=== PATIENT | male | born 1945 | race Hispanic/Latino ===

== ENCOUNTER 2021-05-04 23:38 | Inpatient (IN) | payer MEDICARE ==
[2021-05-05 00:08] LABS: Hemoglobin 13.8 g/dL (14.0-18.0); Mean Corpuscular HGB CONC 33.8 g/dL (32.0-36.0); Mean Corpuscular Volume 97.6 fL (78.0-98.0); RBC Distribution Width 13.2 % (11.5-14.5); Red Blood Cell (RBC) Count 4.17 mill/uL (4.70-6.10); White Blood Cell (WBC) Count 6.9 thou/uL (4.8-10.8)
[2021-05-05 00:12] LABS: INR-International Normal Ratio 1.1; Prothrombin Time 14.7 sec (12.0-14.7)
[2021-05-05 00:16] LABS: ALT (SGPT) 9 U/L (8-55); AST (SGOT) 21 U/L (5-34); Albumin 3.7 g/dL (3.4-4.8); Alcohol Less than 10 mg/dL (Less than 10); Alkaline Phosphatase 59 U/L (40-110); Anion Gap 17 mmol/L (10-20); BUN (Urea Nitrogen) 16 mg/dL (8.4-25.7); Bilirubin, Total 1.4 mg/dL (0.2-1.2); Calc. Creatinine Clearance 0 mL/min (70-130); Calcium 8.6 mg/dL (7.8-10.44); Carbon Dioxide 21 mmol/L (23-31); Chloride 104 mmol/L (98-107); Globulin 2.9 g/dL (2.4-3.5); Glucose 90 mg/dL (83-110); Protein, Total 6.6 g/dL (5.8-8.1); Sodium 138 mmol/L (136-145)
[2021-05-05] MEDS ORDERED: Acetaminophen 500 MG TAB ONE (01:01)
[2021-05-05 01:06] LABS: #Lymphocytes 0.4 thou/uL (1.20-3.40); #Monocytes 0.6 thou/uL (0.11-0.59); #Neutrophils 5.8 thou/uL (1.40-6.50); %Basophils 0.3 % (0.0-1.0); %Eosinophils 0.3 % (0.0-10.0); %Lymphocytes 6.1 % (21.0-51.0); %Monocytes 9.1 % (0.0-10.0); %Neutrophils 84.2 % (42.0-75.0); MDiff Complete? YES; Mean Platelet Volume 7.6 fL (7.4-10.4); Platelet Clumps SLIGHT; Platelet Count 92 thou/uL (130-400)
[2021-05-05 01:09] LABS: CKMB 0.6 ng/mL (0-6.6)
[2021-05-05 01:49] LABS: Bacteria/HPF None Seen HPF (None Seen); Bilirubin Negative (Negative); Blood, Urine 2+ (Negative); Clarity Clear (Clear); Glucose, Urine (Dipstick) Normal (Negative); Ketone, Urine Trace mg/dL (Negative); Leukocyte Negative Leu/uL (Negative); Nitrite 1+ (Negative); Protein, Urine (Dipstick) 100 mg/dL (Neg-Trace); RBC/HPF 0-3 HPF (0-3); Specific Gravity, Urine 1.025 (1.002-1.036); Squamous Epithelial 0-3 HPF (0-3); Urobilinogen Normal mg/dL (Less than 2); pH, Urine 5.5 (5.0-9.0)
[2021-05-05] MEDS ORDERED: Vancomycin 1 GM/200 ML BAG ONE (02:01)
[2021-05-05 03:25] LABS: Troponin I 0.044 ng/mL (< 0.028)
[2021-05-05 04:30] LABS: SARS-CoV-2 NAA Rapid Test DETECTED (NotDetected)
[2021-05-05 07:01] LABS: Troponin I 0.034 ng/mL (< 0.028)
[2021-05-05] MEDS ORDERED: Bisacodyl 5 MG TAB PO PRN (08:16)
[2021-05-05] MEDS ORDERED: Acetaminophen 325 MG TAB PO PRN (08:16)
[2021-05-05] MEDS ORDERED: Acetaminophen 650 MG Suppository PR PRN (08:16)
[2021-05-05] MEDS ORDERED: Senokot S 8.6-50 MG TAB PO PRN (08:16)
[2021-05-05] MEDS ORDERED: Ondansetron ODT 4 MG TAB PO PRN (08:16)
[2021-05-05] MEDS ORDERED: HumaLOG 300 UNITS/3 ML VIAL SC PRN ×2 (08:22)
[2021-05-05] MEDS ORDERED: Dextrose 5% in Water 1,000 ML IV PRN (08:22)
[2021-05-05] MEDS ORDERED: Dextrose 50% Abboject 50 ML SYRINGE SLOW IVP PRN (08:22)
[2021-05-05] MEDS ORDERED: Benzonatate 100 MG CAP PO PRN (08:40)
[2021-05-05] MEDS ORDERED: Guaifenesin DM 100-10/5 ML UDCUP PO PRN (08:40)
[2021-05-05] MEDS ORDERED: Cepastat Lozenges 1 LOZ PO PRN (08:41)
[2021-05-05] MEDS ORDERED: Vancomycin HCl 750 MG in Sodium Chloride 0.9% 250 ML 250 ML IVPB SCH (09:45)
[2021-05-05] MEDS ORDERED: Enoxaparin Sodium 40 MG/0.4 ML SYRINGE ONE (10:47)
[2021-05-05] MEDS ORDERED: Famotidine 20 MG TAB ONE ×2 (10:47→20:40)
[2021-05-05] MEDS: Famotidine 20 MG TAB PO SCH ×2 (10:50→21:15)
[2021-05-05] MEDS: Enoxaparin Sodium 40 MG/0.4 ML SYRINGE SC SCH (10:50)
[2021-05-05] MEDS: Fluticasone Propionate Nasal Spray 16 gm Bottle NASAL SCH (11:18)
[2021-05-05] MEDS: guaiFENesin ER 600 MG TAB PO SCH ×2 (11:18→21:55)
[2021-05-05] MEDS: Carvedilol 6.25 MG TAB PO SCH (18:30)
[2021-05-05] MEDS ORDERED: cefTRIAXone\\ROCEPHIN 1 GM VIAL ONE (20:40)
[2021-05-05] MEDS ORDERED: Cefepime 1 GM in Sodium Chloride 0.9% 100 ML IVPB SCH (21:00)
[2021-05-05] MEDS: cefTRIAXone\\ROCEPHIN 1 GM in Sodium Chloride 0.9% 100 ML IVPB SCH (21:15)
[2021-05-05] MEDS: Atorvastatin Calcium 40 MG TAB PO SCH (21:52)
[2021-05-05] MEDS: hydrALAZINE 10 MG TAB PO SCH (21:55)
[2021-05-05 23:59] VITALS: BMI 28.1
[2021-05-06] MEDS: Atorvastatin Calcium 40 MG TAB PO SCH ×2 (04:03→20:59)
[2021-05-06] MEDS: cefTRIAXone\\ROCEPHIN 1 GM in Sodium Chloride 0.9% 100 ML IVPB SCH ×2 (04:03→20:57)
[2021-05-06] MEDS: hydrALAZINE 10 MG TAB PO SCH ×4 (04:04→21:00)
[2021-05-06] MEDS: guaiFENesin ER 600 MG TAB PO SCH ×3 (04:04→20:59)
[2021-05-06] MEDS: Famotidine 20 MG TAB PO SCH ×2 (04:04→08:10)
[2021-05-06] MEDS ORDERED: VANCOMYCIN 1.75 GM/350 ML BAG 1.75 GM in Premix Bag 1 BAG IVPB SCH (06:00)
[2021-05-06] MEDS: Furosemide 40 MG TAB PO SCH (08:08)
[2021-05-06] MEDS: Carvedilol 6.25 MG TAB PO SCH ×2 (08:08→20:38)
[2021-05-06] MEDS: Enoxaparin Sodium 40 MG/0.4 ML SYRINGE SC SCH (08:08)
[2021-05-06] MEDS: Ascorbic Acid 500 mg Chewable Tablet PO SCH (08:09)
[2021-05-06] MEDS: Cholecalciferol 1,000 UNITS (25 MCG) TAB PO SCH (08:09)
[2021-05-06] MEDS: Losartan 25 MG TAB PO SCH (08:09)
[2021-05-06] MEDS: Zinc Sulfate 220 MG CAP PO SCH (08:10)
[2021-05-06] MEDS: Aspirin 81 mg Enteric Coated Tablet PO SCH (08:10)
[2021-05-06 08:30] LABS: #Lymphocytes 0.8 thou/uL (1.20-3.40); #Monocytes 0.5 thou/uL (0.11-0.59); #Neutrophils 5.8 thou/uL (1.40-6.50); %Lymphocytes 11.5 % (21.0-51.0); %Monocytes 7.5 % (0.0-10.0); Hemoglobin 13.6 g/dL (14.0-18.0); Mean Corpuscular HGB CONC 33.2 g/dL (32.0-36.0); Mean Corpuscular Hemoglobin 32.4 pg (27.0-31.0); Mean Corpuscular Volume 97.5 fL (78.0-98.0); Mean Platelet Volume 8.9 fL (7.4-10.4); Platelet Count 83 thou/uL (130-400); RBC Distribution Width 13.1 % (11.5-14.5); White Blood Cell (WBC) Count 7.1 thou/uL (4.8-10.8)
[2021-05-06 08:35] LABS: Anion Gap 17 mmol/L (10-20); BUN (Urea Nitrogen) 21 mg/dL (8.4-25.7); Calc. Creatinine Clearance 72 mL/min (70-130); Calcium 8.5 mg/dL (7.8-10.44); Carbon Dioxide 20 mmol/L (23-31); Chloride 104 mmol/L (98-107); Glucose 101 mg/dL (83-110); Potassium 3.8 mmol/L (3.5-5.1); Sodium 137 mmol/L (136-145)
[2021-05-06] MEDS: Fluticasone Propionate Nasal Spray 16 gm Bottle NASAL SCH (12:27)
[2021-05-07] MEDS: Aspirin 81 mg Enteric Coated Tablet PO SCH (08:12)
[2021-05-07] MEDS: Cholecalciferol 1,000 UNITS (25 MCG) TAB PO SCH (08:12)
[2021-05-07] MEDS: Enoxaparin Sodium 40 MG/0.4 ML SYRINGE SC SCH (08:12)
[2021-05-07] MEDS: hydrALAZINE 10 MG TAB PO SCH ×3 (08:13→21:09)
[2021-05-07] MEDS: Famotidine 20 MG TAB PO SCH ×2 (08:14→21:09)
[2021-05-07] MEDS: Furosemide 40 MG TAB PO SCH (08:14)
[2021-05-07] MEDS: Ascorbic Acid 500 mg Chewable Tablet PO SCH (08:14)
[2021-05-07] MEDS: Zinc Sulfate 220 MG CAP PO SCH (08:14)
[2021-05-07] MEDS: Carvedilol 6.25 MG TAB PO SCH ×2 (08:14→18:24)
[2021-05-07] MEDS: Losartan 25 MG TAB PO SCH (08:15)
[2021-05-07] MEDS: Fluticasone Propionate Nasal Spray 16 gm Bottle NASAL SCH (08:15)
[2021-05-07] MEDS: guaiFENesin ER 600 MG TAB PO SCH ×2 (08:15→21:09)
[2021-05-07] MEDS ORDERED: Losartan 25 MG TAB PO SCH (09:00)
[2021-05-07 12:02] LABS: #Lymphocytes 0.3 thou/uL (1.20-3.40); #Monocytes 0.6 thou/uL (0.11-0.59); #Neutrophils 4.1 thou/uL (1.40-6.50); %Basophils 0.7 % (0.0-1.0); %Eosinophils 0.2 % (0.0-10.0); %Lymphocytes 6.7 % (21.0-51.0); %Monocytes 11.4 % (0.0-10.0); %Neutrophils 81.1 % (42.0-75.0); Hemoglobin 13.4 g/dL (14.0-18.0); Mean Corpuscular HGB CONC 31.8 g/dL (32.0-36.0); Mean Corpuscular Hemoglobin 30.8 pg (27.0-31.0); Mean Corpuscular Volume 96.9 fL (78.0-98.0); Mean Platelet Volume 8.5 fL (7.4-10.4); Platelet Count 87 thou/uL (130-400); Red Blood Cell (RBC) Count 4.35 mill/uL (4.70-6.10)
[2021-05-07 12:11] LABS: Anion Gap 15 mmol/L (10-20); BUN (Urea Nitrogen) 24 mg/dL (8.4-25.7); Calc. Creatinine Clearance 63 mL/min (70-130); Calcium 8.5 mg/dL (7.8-10.44); Carbon Dioxide 21 mmol/L (23-31); Chloride 102 mmol/L (98-107); Glucose 189 mg/dL (83-110); Potassium 3.4 mmol/L (3.5-5.1); Sodium 135 mmol/L (136-145)
[2021-05-07] MEDS: cefTRIAXone\\ROCEPHIN 1 GM in Sodium Chloride 0.9% 100 ML IVPB SCH (21:08)
[2021-05-07] MEDS: Atorvastatin Calcium 40 MG TAB PO SCH (21:09)
[2021-05-08 05:56] LABS: #Lymphocytes 0.7 thou/uL (1.20-3.40); #Monocytes 0.6 thou/uL (0.11-0.59); #Neutrophils 3.7 thou/uL (1.40-6.50); %Basophils 0.1 % (0.0-1.0); %Eosinophils 0.1 % (0.0-10.0); %Lymphocytes 12.9 % (21.0-51.0); %Monocytes 12.8 % (0.0-10.0); %Neutrophils 74.1 % (42.0-75.0); Hemoglobin 14.1 g/dL (14.0-18.0); Mean Corpuscular HGB CONC 33.2 g/dL (32.0-36.0); Mean Corpuscular Volume 96.4 fL (78.0-98.0); Mean Platelet Volume 8.5 fL (7.4-10.4); Platelet Count 95 thou/uL (130-400); Red Blood Cell (RBC) Count 4.41 mill/uL (4.70-6.10)
[2021-05-08 06:19] LABS: Anion Gap 15 mmol/L (10-20); BUN (Urea Nitrogen) 24 mg/dL (8.4-25.7); Calc. Creatinine Clearance 77 mL/min (70-130); Calcium 8.5 mg/dL (7.8-10.44); Carbon Dioxide 20 mmol/L (23-31); Chloride 103 mmol/L (98-107); Glucose 124 mg/dL (83-110); Potassium 3.3 mmol/L (3.5-5.1); Sodium 135 mmol/L (136-145)
[2021-05-08] MEDS: Furosemide 40 MG TAB PO SCH (06:34)
[2021-05-08] MEDS ORDERED: Potassium Chloride 20 MEQ TAB PO SCH (07:45)
[2021-05-08] MEDS: Ascorbic Acid 500 mg Chewable Tablet PO SCH (10:08)
[2021-05-08] MEDS: Cholecalciferol 1,000 UNITS (25 MCG) TAB PO SCH (10:09)
[2021-05-08] MEDS: hydrALAZINE 10 MG TAB PO SCH ×3 (10:09→20:52)
[2021-05-08] MEDS: Zinc Sulfate 220 MG CAP PO SCH (10:11)
[2021-05-08] MEDS: Famotidine 20 MG TAB PO SCH ×2 (10:11→20:51)
[2021-05-08] MEDS: Losartan 25 MG TAB PO SCH (10:13)
[2021-05-08] MEDS: guaiFENesin ER 600 MG TAB PO SCH ×2 (10:13→20:52)
[2021-05-08] MEDS: Carvedilol 6.25 MG TAB PO SCH ×2 (10:13→15:56)
[2021-05-08] MEDS: Aspirin 81 mg Enteric Coated Tablet PO SCH (10:13)
[2021-05-08] MEDS: Fluticasone Propionate Nasal Spray 16 gm Bottle NASAL SCH (10:18)
[2021-05-08] MEDS: Enoxaparin Sodium 40 MG/0.4 ML SYRINGE SC SCH (10:20)
[2021-05-08] MEDS: cefTRIAXone\\ROCEPHIN 1 GM in Sodium Chloride 0.9% 100 ML IVPB SCH (20:51)
[2021-05-08] MEDS: Atorvastatin Calcium 40 MG TAB PO SCH (20:52)
[2021-05-09 07:02] LABS: #Lymphocytes 0.5 thou/uL (1.20-3.40); #Monocytes 0.6 thou/uL (0.11-0.59); #Neutrophils 3.3 thou/uL (1.40-6.50); %Eosinophils 0.1 % (0.0-10.0); %Lymphocytes 10.8 % (21.0-51.0); %Monocytes 13.1 % (0.0-10.0); Hemoglobin 14.1 g/dL (14.0-18.0); Mean Corpuscular HGB CONC 33.8 g/dL (32.0-36.0); Mean Corpuscular Hemoglobin 32.5 pg (27.0-31.0); Mean Corpuscular Volume 96.1 fL (78.0-98.0); Mean Platelet Volume 8.7 fL (7.4-10.4); Platelet Count 114 thou/uL (130-400); Red Blood Cell (RBC) Count 4.34 mill/uL (4.70-6.10); White Blood Cell (WBC) Count 4.3 thou/uL (4.8-10.8)
[2021-05-09 07:06] LABS: Anion Gap 14 mmol/L (10-20); BUN (Urea Nitrogen) 22 mg/dL (8.4-25.7); Calc. Creatinine Clearance 83 mL/min (70-130); Calcium 8.1 mg/dL (7.8-10.44); Carbon Dioxide 20 mmol/L (23-31); Chloride 104 mmol/L (98-107); Glucose 111 mg/dL (83-110); Potassium 3.7 mmol/L (3.5-5.1); Sodium 134 mmol/L (136-145)
[2021-05-09 08:22] VITALS: BP 158/72; TEMP 98.5
[2021-05-09] MEDS: Cholecalciferol 1,000 UNITS (25 MCG) TAB PO SCH (08:30)
[2021-05-09] MEDS: Aspirin 81 mg Enteric Coated Tablet PO SCH (08:31)
[2021-05-09] MEDS: hydrALAZINE 10 MG TAB PO SCH (08:31)
[2021-05-09] MEDS: Furosemide 40 MG TAB PO SCH (08:32)
[2021-05-09] MEDS: Zinc Sulfate 220 MG CAP PO SCH (08:32)
[2021-05-09] MEDS: Famotidine 20 MG TAB PO SCH (08:32)
[2021-05-09] MEDS: Losartan 25 MG TAB PO SCH (08:32)
[2021-05-09] MEDS: Ascorbic Acid 500 mg Chewable Tablet PO SCH (08:33)
[2021-05-09] MEDS: guaiFENesin ER 600 MG TAB PO SCH (08:33)
[2021-05-09] MEDS: Enoxaparin Sodium 40 MG/0.4 ML SYRINGE SC SCH (08:33)
[2021-05-09] MEDS: Fluticasone Propionate Nasal Spray 16 gm Bottle NASAL SCH (08:34)
[2021-05-09] MEDS: Carvedilol 6.25 MG TAB PO SCH (08:45)
== END 2021-05-09 13:20 | disposition home or self-care (01) | DRG 871 ==
LOC: ERS 23:38 → ERHOLD 05-05 02:33 → 2SW 05-05 23:24
PROVIDERS: ADMIT Student in an Organized Health Care Education/Training Program; ATTEND Internal Medicine
PROC: 8E0ZXY6 Isolation (ICD-10-PCS; principal; 2021-05-05)
DX: A41.89 Other specified sepsis (principal); U07.1 COVID-19; G93.41 Metabolic encephalopathy; J12.82 Pneumonia due to coronavirus disease 2019; N39.0 Urinary tract infection, site not specified; E87.1 Hypo-osmolality and hyponatremia; I50.42 Chronic combined systolic (congestive) and diastolic (congestive) heart failure; E11.9 Type 2 diabetes mellitus without complications; E78.5 Hyperlipidemia, unspecified; E78.00 Pure hypercholesterolemia, unspecified; F41.9 Anxiety disorder, unspecified; I25.10 Atherosclerotic heart disease of native coronary artery without angina pectoris; I11.0 Hypertensive heart disease with heart failure; Z85.89 Personal history of malignant neoplasm of other organs and systems; I25.2 Old myocardial infarction; Z79.4 Long term (current) use of insulin; Z79.82 Long term (current) use of aspirin; Z79.84 Long term (current) use of oral hypoglycemic drugs; Z79.899 Other long term (current) drug therapy; Z95.1 Presence of aortocoronary bypass graft; Z90.5 Acquired absence of kidney; Z88.8 Allergy status to other drugs, medicaments and biological substances
CPT/HCPCS: 36415; 36416; 70450; 71045; 80048; 80053; 80307; 81003; 81015; 82553; 82728; 83605; 84145; 84484; 85025; 85379; 85610; 85730; 86140; 87040; 87045; 87046; 87086; 87324; 87427; 87449; 93005; 96365; 96366; 96367; J0696; J1650; J3370; J3490; J7050; Q0162; U0002

== ENCOUNTER 2021-11-21 14:03 | Inpatient (IN) | payer OTHER ==
[2021-11-21] MEDS ORDERED: niCARdipine 25 MG/10 ML VIAL ONE (15:09)
[2021-11-21] MEDS ORDERED: Magnevist 469MG/ML 20 ML VIAL ONE (16:04)
[2021-11-21] MEDS ORDERED: Labetalol HCl 100 MG/20 ML VIAL SLOW IVP PRN (17:30)
[2021-11-21] MEDS ORDERED: Ondansetron PF 4 MG/2 ML Vial IVP PRN (17:30)
[2021-11-21] MEDS ORDERED: HYDROcodone/Acetaminophen 7.5/325 mg Tablet PO PRN (17:30)
[2021-11-21] MEDS ORDERED: Dextrose 50% Abboject 50 ML SYRINGE SLOW IVP PRN (17:37)
[2021-11-21] MEDS ORDERED: Dextrose 5% in Water 1,000 ML IV PRN (17:37)
[2021-11-21] MEDS ORDERED: HumaLOG 300 UNITS/3 ML VIAL SC PRN (17:37)
[2021-11-21 18:22] LABS: SARS-CoV-2 NAA Rapid Test Not Detected (NotDetected)
[2021-11-21 18:38] VITALS: BMI 27.2
[2021-11-21] MEDS ORDERED: HYDROcodone/Acetaminophen 5/325 mg Tablet PO PRN (18:58)
[2021-11-21] MEDS ORDERED: Acetaminophen 325 MG TAB PO PRN (18:58)
[2021-11-21] MEDS ORDERED: Senokot S 8.6-50 MG TAB PO PRN (18:58)
[2021-11-21] MEDS ORDERED: Calcium Carbonate 500 MG ChewTAB PO PRN (18:58)
[2021-11-21] MEDS ORDERED: Bisacodyl 10 MG SUPP PR PRN (18:58)
[2021-11-21] MEDS: Atorvastatin Calcium 40 MG TAB PO SCH (20:49)
[2021-11-22 04:20] LABS: #Eosinphils 0.2 thou/uL (0.0-0.7); #Lymphocytes 1.5 thou/uL (1.20-3.40); #Monocytes 0.7 thou/uL (0.11-0.59); #Neutrophils 4.7 thou/uL (1.40-6.50); %Basophils 0.6 % (0.0-1.0); %Eosinophils 2.2 % (0.0-10.0); %Lymphocytes 20.6 % (21.0-51.0); %Monocytes 10.2 % (0.0-10.0); %Neutrophils 66.5 % (42.0-75.0); Hemoglobin 12.1 g/dL (14.0-18.0); Mean Corpuscular HGB CONC 34.2 g/dL (32.0-36.0); Mean Corpuscular Hemoglobin 33.6 pg (27.0-31.0); Mean Corpuscular Volume 98.3 fL (78.0-98.0); Platelet Count 133 thou/uL (130-400); RBC Distribution Width 13.3 % (11.5-14.5); Red Blood Cell (RBC) Count 3.61 mill/uL (4.70-6.10); White Blood Cell (WBC) Count 7.1 thou/uL (4.8-10.8)
[2021-11-22 04:24] LABS: Anion Gap 12 mmol/L (10-20); BUN (Urea Nitrogen) 15 mg/dL (8.4-25.7); Calc. Creatinine Clearance 71 mL/min (70-130); Calcium 8.4 mg/dL (7.8-10.44); Carbon Dioxide 29 mmol/L (23-31); Chloride 103 mmol/L (98-107); Estimated GFR 79; Glucose 98 mg/dL (83-110); Potassium 3.5 mmol/L (3.5-5.1); Sodium 140 mmol/L (136-145)
[2021-11-22] MEDS: Carvedilol 25 MG TAB PO SCH ×2 (08:56→16:42)
[2021-11-22] MEDS ORDERED: Losartan 25 MG TAB PO SCH ×2 (09:00→15:30)
[2021-11-22] MEDS ORDERED: hydrALAZINE 20 MG/ML VIAL SLOW IVP PRN (15:19)
[2021-11-22] MEDS: Atorvastatin Calcium 40 MG TAB PO SCH (20:53)
[2021-11-22] MEDS ORDERED: Propofol 1,000 MG/100 ML VIAL IV ONE (21:39)
[2021-11-22 21:43] LABS: #Basophils 0.1 thou/uL (0.0-0.2); #Eosinphils 0.2 thou/uL (0.0-0.7); #Lymphocytes 2.6 thou/uL (1.20-3.40); #Monocytes 1.1 thou/uL (0.11-0.59); %Basophils 0.6 % (0.0-1.0); %Eosinophils 2.2 % (0.0-10.0); %Lymphocytes 26.2 % (21.0-51.0); Hemoglobin 13.4 g/dL (14.0-18.0); Mean Corpuscular HGB CONC 32.7 g/dL (32.0-36.0); Mean Corpuscular Hemoglobin 32.4 pg (27.0-31.0); Mean Platelet Volume 8.3 fL (7.4-10.4); Platelet Count 168 thou/uL (130-400); RBC Distribution Width 13.2 % (11.5-14.5); Red Blood Cell (RBC) Count 4.14 mill/uL (4.70-6.10)
[2021-11-22] MEDS ORDERED: Midazolam HCl 2 mg/2 ml Vial SLOW IVP PRN (21:43)
[2021-11-22] MEDS ORDERED: Propofol BOLUS 1,000 MG/100 ML VIAL IV PRN (21:45)
[2021-11-22] MEDS ORDERED: Fentanyl BOLUS 250 ML IVPB PRN (21:45)
[2021-11-22] MEDS ORDERED: Propofol 1,000 MG/100 ML VIAL IV PRN (21:45)
[2021-11-22] MEDS ORDERED: DISCONTINUE PREVIOUS NARCOTIC PAIN MEDICATIONS AND BENZODIAZEPINES FS SCH (21:45)
[2021-11-22] MEDS ORDERED: Fentanyl CADD 100 ML IV SCH (21:45)
[2021-11-22] MEDS ORDERED: Morphine 2 MG/ML VIAL SLOW IVP PRN (21:45)
[2021-11-22] MEDS ORDERED: Ventilator Sedation Protocol 1 EACH FS SCH (21:45)
[2021-11-22] MEDS: niCARdipine 25 MG in Sodium Chloride 0.9% 250 ML 250 ML IVPB SCH (21:51)
[2021-11-22 21:52] LABS: Base Excess (BEa) 0.7 mEq/L (-2.0 to +3.0); CO2 Tension 34.5 mmHg (35.0-45.0); Calcium, Ionized (arterial) 1.16 mmol/L (1.12-1.30); Carboxyhemoglobin (COHb) 0.1 gm% (0.0-3.0); Hemoglobin (Hb) 13.2 g/dL (14.0-18.0); O2 Tension (PaO2), arterial 231.9 mmHg (> 70.0); Potassium - ABG Lab 3.93 mmol/L (3.70-5.30); pH, Arterial 7.46 (7.35-7.45)
[2021-11-22 21:54] LABS: ALV-art Gradient 81.475 mmHg (0-20); Puncture Site LBA
[2021-11-22 21:55] LABS: INR-International Normal Ratio 1.1; Prothrombin Time 14.3 sec (12.0-14.7)
[2021-11-22 21:56] LABS: PTT 30.5 sec (22.9-36.1)
[2021-11-22 22:16] LABS: ALT (SGPT) 9 U/L (8-55); AST (SGOT) 18 U/L (5-34); Albumin 3.6 g/dL (3.4-4.8); Alkaline Phosphatase 107 U/L (40-110); Anion Gap 16 mmol/L (10-20); BUN (Urea Nitrogen) 17 mg/dL (8.4-25.7); Bilirubin, Total 1.7 mg/dL (0.2-1.2); Calc. Creatinine Clearance 0 mL/min (70-130); Calcium 9.1 mg/dL (7.8-10.44); Carbon Dioxide 23 mmol/L (23-31); Chloride 105 mmol/L (98-107); Estimated GFR 76; Magnesium 1.9 mg/dL (1.6-2.6); Potassium 4.7 mmol/L (3.5-5.1); Protein, Total 6.6 g/dL (5.8-8.1); Sodium 139 mmol/L (136-145)
[2021-11-22 22:54] LABS: Glucose 177 mg/dL (83-110)
[2021-11-23 03:52] LABS: #Lymphocytes 0.7 thou/uL (1.20-3.40); #Monocytes 0.8 thou/uL (0.11-0.59); #Neutrophils 11.7 thou/uL (1.40-6.50); %Basophils 0.1 % (0.0-1.0); %Eosinophils 0.1 % (0.0-10.0); %Lymphocytes 5.4 % (21.0-51.0); %Monocytes 6.3 % (0.0-10.0); %Neutrophils 88.1 % (42.0-75.0); Hemoglobin 13.1 g/dL (14.0-18.0); Mean Corpuscular HGB CONC 34.1 g/dL (32.0-36.0); Mean Corpuscular Hemoglobin 33.2 pg (27.0-31.0); Mean Corpuscular Volume 97.4 fL (78.0-98.0); Mean Platelet Volume 7.9 fL (7.4-10.4); Platelet Count 168 thou/uL (130-400); RBC Distribution Width 13.2 % (11.5-14.5); Red Blood Cell (RBC) Count 3.95 mill/uL (4.70-6.10); White Blood Cell (WBC) Count 13.2 thou/uL (4.8-10.8)
[2021-11-23 04:44] LABS: Anion Gap 18 mmol/L (10-20); BUN (Urea Nitrogen) 20 mg/dL (8.4-25.7); Calc. Creatinine Clearance 0 mL/min (70-130); Calcium 9.2 mg/dL (7.8-10.44); Carbon Dioxide 23 mmol/L (23-31); Chloride 101 mmol/L (98-107); Estimated GFR 74; Glucose 252 mg/dL (83-110); Potassium 3.9 mmol/L (3.5-5.1); Sodium 138 mmol/L (136-145)
[2021-11-23] MEDS ORDERED: Piperacillin/Tazobactam 3.375 GM in Sodium Chloride 0.9% 100 ML IVPB SCH ×2 (05:15→09:00)
[2021-11-23] MEDS: Carvedilol 25 MG TAB PO SCH (08:10)
[2021-11-23] MEDS: niCARdipine 25 MG in Sodium Chloride 0.9% 250 ML 250 ML IVPB SCH (08:11)
[2021-11-23] MEDS ORDERED: Losartan 25 MG TAB PO SCH (09:00)
[2021-11-23 14:11] VITALS: BP 125/63
[2021-11-23] MEDS ORDERED: Morphine 4 MG/ML VIAL SLOW IVP PRN (15:33)
[2021-11-23] MEDS ORDERED: Lorazepam 2 MG/ML VIAL SLOW IVP PRN (15:34)
[2021-11-23] MEDS ORDERED: Lorazepam 2 MG/ML VIAL SLOW IVP SCH (15:45)
[2021-11-23] MEDS ORDERED: Morphine 4 MG/ML VIAL SLOW IVP SCH (15:45)
[2021-11-23] MEDS ORDERED: Scopolamine 1.5 mg/72 hour Patch TOP SCH (15:45)
[2021-11-23 20:15] VITALS: TEMP 98.3
== END 2021-11-23 20:00 | disposition expired | DRG 64 ==
LOC: ERS 14:03 → CCU 17:13
PROVIDERS: ADMIT Internal Medicine; ATTEND Internal Medicine
PROC: 0BH17EZ Insertion of Endotracheal Airway into Trachea, Via Natural or Artificial Opening (ICD-10-PCS; principal; 2021-11-22)
PROC: 5A1935Z Respiratory Ventilation, Less than 24 Consecutive Hours (ICD-10-PCS; 2021-11-22)
DX: I61.3 Nontraumatic intracerebral hemorrhage in brain stem (principal); J96.00 Acute respiratory failure, unspecified whether with hypoxia or hypercapnia; G93.41 Metabolic encephalopathy; Q28.3 Other malformations of cerebral vessels; G93.6 Cerebral edema; G81.94 Hemiplegia, unspecified affecting left nondominant side; G91.1 Obstructive hydrocephalus; E87.2 Acidosis; Z66 Do not resuscitate; Z51.5 Encounter for palliative care; I25.10 Atherosclerotic heart disease of native coronary artery without angina pectoris; N18.9 Chronic kidney disease, unspecified; E11.22 Type 2 diabetes mellitus with diabetic chronic kidney disease; I12.9 Hypertensive chronic kidney disease with stage 1 through stage 4 chronic kidney disease, or unspecified chronic kidney disease; D63.1 Anemia in chronic kidney disease; R53.81 Other malaise; D69.6 Thrombocytopenia, unspecified; F41.9 Anxiety disorder, unspecified; F32.A Depression, unspecified; R29.705 NIHSS score 5; I25.5 Ischemic cardiomyopathy; R47.1 Dysarthria and anarthria; R40.20 Unspecified coma; R00.1 Bradycardia, unspecified; R29.810 Facial weakness; R47.81 Slurred speech; Z20.822 Contact with and (suspected) exposure to COVID-19; Z78.1 Physical restraint status; Z79.82 Long term (current) use of aspirin; Z88.8 Allergy status to other drugs, medicaments and biological substances; Z79.899 Other long term (current) drug therapy; I25.2 Old myocardial infarction; Z79.84 Long term (current) use of oral hypoglycemic drugs; Z95.1 Presence of aortocoronary bypass graft; Z95.5 Presence of coronary angioplasty implant and graft; Z98.890 Other specified postprocedural states; Z85.53 Personal history of malignant neoplasm of renal pelvis; Z79.4 Long term (current) use of insulin; Z90.5 Acquired absence of kidney; Z84.89 Family history of other specified conditions; Z86.16 Personal history of COVID-19
CPT/HCPCS: 36415; 36416; 36600; 70450; 70553; 71045; 74230; 80048; 82805; 83735; 85025; 85610; 85730; 93005; 93010; 94002; 95706; 95819; 95957; 96365; 96366; A9579; J1815; J2060; J2270; J2405; J2543; J2704; J3490; J7050; U0002